=== PATIENT | male | born 1950 | race Caucasian/White ===

== ENCOUNTER 2016-08-23 18:16 | Inpatient (IN) | END 2016-08-25 16:24 | disposition home or self-care (01) | DRG 389 | DX: K56.69 Other intestinal obstruction (principal); J98.11 Atelectasis; I10 Essential (primary) hypertension; R74.0 Nonspecific elevation of levels of transaminase and lactic acid dehydrogenase [LDH]; Z79.82 Long term (current) use of aspirin; Z85.038 Personal history of other malignant neoplasm of large intestine; Z85.51 Personal history of malignant neoplasm of bladder; Z92.21 Personal history of antineoplastic chemotherapy; Z92.3 Personal history of irradiation; Z86.59 Personal history of other mental and behavioral disorders ==